=== PATIENT | male | born 1990 | race Caucasian/White ===

== ENCOUNTER 2021-07-26 17:15 | Emergency (ER) | payer BC, SELFPAY ==
[2021-07-26 17:21] VITALS: BP 144/77; PULSE 85; TEMP 37.2; O2SAT 96
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
[2021-07-26 18:00] LABS: Abs Immature Grans 0.02 10^3/uL (0.0-0.06); Absolute Basophil Count 0.04 10^3/uL (0.0-0.2); Absolute Eosinophil Count 0.04 10^3/uL (0.0-0.7); Absolute Lymphocyte Count 1.78 10^3/uL (1.2-3.4); Absolute Monocyte Count 0.83 10^3/uL (0.1-0.8); Absolute Neutrophil Count 9.34 10^3/uL (1.2-6.7); Basophils % 0.3; Eosinophils % 0.3; HCT 44.1 % (40.0-50.0); HGB 14.1 g/dL (13.5-17.5); Immature Grans % 0.2; Lymphocytes % 14.8; MCH 26.5 pg (27.0-33.0); MCV 82.9 fL (80-95); MPV 11.1 fL (8.0-11.0); Monocytes % 6.9; Neutrophils % 77.5; Nucleated RBC 0 %; Platelet Count 239 10^3/uL (130-400); RBC 5.32 10^6/uL (4.36-5.78); RDW 12.8 % (11.8-14.1); RDW-SD 38.8 fL; WBC 12.05 10^3/uL (4.4-10.8)
[2021-07-26 18:01] LABS: Bilirubin Negative (Negative); Blood Negative (Negative); Clarity Clear (Clear); Glucose Negative (Negative); Ketones Negative (Negative); Leukocyte Esterase Negative (Negative); Nitrite Negative (Negative); Specific Gravity 1.025 (1.005-1.025); Urobilinogen 0.2 EU/dL (Up TO 0.2)
[2021-07-26 18:14] LABS: ALT 39 U/L (16-63); AST 36 U/L (15-37); Albumin 4.7 g/dL (3.4-5.0); Alkaline Phosphatase 75 U/L (46-116); Anion Gap 9.2 mmol/L (3-11); BUN 19 mg/dL (7-18); Bilirubin, Total 0.8 mg/dL (0.2-1.0); CO2 28.8 mmol/L (21.0-32.0); CREATININE 1.1 mg/dL (0.70-1.30); Chloride 103 mmol/L (98-107); Glucose 101 mg/dL (74-106); Lipase 499 U/L (73-393); Magnesium 1.8 mg/dL (1.8-2.4); Potassium 3.8 mmol/L (3.5-5.1); Sodium 141 mmol/L (136-145); Total Protein 7.9 g/dL (6.4-8.2)
[2021-07-26 18:36] VITALS: BP 142/85; PULSE 66; RESP 16; TEMP 37.2; O2SAT 100
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
[2021-07-26] MEDS: Normal Saline 1,000 ML 1000 ML IV (18:37)
[2021-07-26] MEDS: Omnipaque 350 MG/ML 100 ML BTL IJ (18:38)
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
[2021-07-26] MEDS: Ondansetron 4 MG/2 ML VIAL IVP (18:54)
[2021-07-26] MEDS: ACETAMINOPHEN 1,000 MG/100 ML BTL 400 MG IVPB (18:54)
[2021-07-26] MEDS: Cyclobenzaprine 10 MG TAB, 3 TABS/BTL PO (19:37)
[2021-07-26] MEDS: Cyclobenzaprine 10 MG TAB PO (19:37)
[2021-07-26 19:56] VITALS: BP 142/85; PULSE 66; RESP 16; TEMP 37.2; O2SAT 100
== END 2021-07-26 20:01 | disposition home or self-care (01) ==
PROVIDERS: Emergency Provider Registered Nurse Emergency; PCP Nurse Practitioner Family
DX: S62.637A Displaced fracture of distal phalanx of left little finger, initial encounter for closed fracture (principal); R07.89 Other chest pain; R10.9 Unspecified abdominal pain; M54.2 Cervicalgia; R51.9 Headache, unspecified; M54.6 Pain in thoracic spine; V86.56XA Driver of dirt bike or motor/cross bike injured in nontraffic accident, initial encounter
CPT/HCPCS: 36415; 74177; 80053; 83690; 96361; 96374; 96375; 99285; 70450; 71260; 72125; 73130; 81003; 83735; 85025; 99284; J0131; J2405; J3490

== ENCOUNTER 2021-09-12 07:46 | Emergency (ER) | payer BC, SELFPAY ==
[2021-09-12 07:50] VITALS: BP 140/89; PULSE 62; RESP 18; TEMP 36.8; O2SAT 99
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
[2021-09-12] MEDS: Cyclobenzaprine 10 MG TAB PO (08:20)
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
--- NOTE | 2021-09-12 09:51 | NUR.NOTE ---
Nursing Note: [facility] called stating they did not have prescriptions for this patient. I spoke with patient and he asked to have them sent electronically to [facility]. Karon Monroe did send the prescriptions and the pharmacy was notified. Elina Campo
== END 2021-09-12 09:08 | disposition home or self-care (01) ==
PROVIDERS: Emergency Provider Physician Assistant; PCP Nurse Practitioner Family
DX: M54.6 Pain in thoracic spine (principal); R07.89 Other chest pain
CPT/HCPCS: 99283; 71046

== ENCOUNTER 2021-09-16 18:57 | Outpatient (CLI) | payer BC, SELFPAY ==
--- NOTE | 2021-09-16 13:57 | DI.RAD_ITS ---
Exam(s) XR RIBS ONLY RT EXAM: XR RIBS ONLY RT CLINICAL HISTORY: CHEST WALL PAIN R07.89 TECHNIQUE: COMPARISON: CR,XR XR CHEST 2V PA LATERAL from 09/12/2021 FINDINGS: Five views of the ribs were obtained. No bony or soft tissue abnormality seen. Visualized lungs marissa ear clear. IMPRESSION: RADIATION DOSE DELIVERED: Total DLP
== END 2021-09-16 19:17 ==
LOC: DI 18:59
PROVIDERS: PCP Nurse Practitioner Family; Visit Provider Family Medicine
DX: R07.89 Other chest pain
CPT/HCPCS: 71100

== ENCOUNTER 2024-02-20 07:02 | Emergency (ER) | payer BC, SELFPAY ==
--- NOTE | 2024-02-20 07:00 | RT.EKG_ITS ---
APPROVED REPORT Exam: Resting ECG Reason for Exam: chest pain Patient Location: E HR:62 bpm ECG Measurements Heart Rate 62 AXIS MN 156 P 51 QRSd 86 QRS 63 QT 371 T 51 QTc 377 Conclusion Sinus rhythm...normal P axis, V-rate 60- 99 Consider anterolateral infarct...Q >30mS, I aVL V3-V6,I,aVL Physician: no stemi
[2024-02-20 07:05] VITALS: BP 129/75; PULSE 58; RESP 20; TEMP 36.5; O2SAT 100
[2024-02-20 07:31] LABS: Abs Immature Grans 0.01 10^3/uL (0.0-0.06); Absolute Basophil Count 0.01 10^3/uL (0.0-0.2); Absolute Eosinophil Count 0.08 10^3/uL (0.0-0.7); Absolute Lymphocyte Count 1.37 10^3/uL (1.2-3.4); Absolute Monocyte Count 0.58 10^3/uL (0.1-0.8); Absolute Neutrophil Count 4.03 10^3/uL (1.2-6.7); Basophils % 0.2 %; Eosinophils % 1.3 %; HCT 42.2 % (40.0-50.0); HGB 13.9 g/dL (13.5-17.5); Immature Grans % 0.2 %; Lymphocytes % 22.5 %; MCH 27.1 pg (27.0-33.0); MCHC 32.9 % (32.0-36.0); MCV 82 fL (80-95); MPV 10.2 fL (8.0-11.0); Monocytes % 9.5 %; Neutrophils % 66.3 %; Platelet Count 194 10^3/uL (130-400); RBC 5.13 10^6/uL (4.36-5.78); RDW 12.5 % (11.8-14.1); RDW-SD 38.1 fL; WBC 6.08 10^3/uL (4.4-10.8)
[2024-02-20] MEDS: Acetaminophen 500 MG TAB 1000 MG PO (07:40)
[2024-02-20] MEDS: Cyclobenzaprine 10 MG TAB PO (07:40)
[2024-02-20] MEDS: Lidocaine 5% Patch 1 PATCH TP (07:40)
--- NOTE | 2024-02-20 07:41 | DI.RAD_ITS ---
Exam(s) XR PORTABLE CHEST AP EXAM: XR PORTABLE CHEST AP CLINICAL HISTORY: chest and back pain TECHNIQUE: 2D digital imaging was performed of the chest. Two images were obtained. AP views were obtained. COMPARISON: CR,XR XR CHEST 2V PA LATERAL from 09/12/2021 CR XR RIBS ONLY RT from 09/16/2021 FINDINGS: MEDIASTINUM: Normal. HEART: Normal. PULMONARY VASCULATURE: Normal. LUNGS: Clear. PLEURAL SPACE: No pleural effusion or pneumothorax. BONE:Within normal limits for the patient's age. OTHER FINDINGS:Normal. IMPRESSION: No acute pulmonary findings. DATA REPOSITORY: RADIATION DOSE DELIVERED:
[2024-02-20 07:45] LABS: PTT Activated 26.3 sec (23.6-32.8); Prothrombin Time 10.2 sec (9.1-11.1)
[2024-02-20 07:48] VITALS: RESP 18
[2024-02-20 07:49] LABS: ALT 25 U/L (16-63); AST 23 U/L (15-37); Albumin 4.1 g/dL (3.4-5.0); Alkaline Phosphatase 61 U/L (46-116); Anion Gap 5.2 mmol/L (3-11); BUN 19 mg/dL (7-18); Bilirubin, Total 0.79 mg/dL (0.2-1.0); CO2 29.8 mmol/L (21.0-32.0); CREATININE 1.2 mg/dL (0.70-1.30); Calcium 9.1 mg/dL (8.5-10.1); Chloride 108 mmol/L (98-107); Estimated GFR 81.38 (mL/min/1.73m2); Glucose 77 mg/dL (74-106); Lipase 208 U/L (16-77); Potassium 4.2 mmol/L (3.5-5.1); Sodium 143 mmol/L (136-145); Total Protein 7.2 g/dL (6.4-8.2)
--- NOTE | 2024-02-20 07:49 | DI.VRAD_ITS ---
PROCEDURE INFORMATION: Exam: XR Chest Exam date and time: 02/20/2024 7:36 AM Age: 33 years old Clinical indication: Right-sided; Patient HX: Chest pain and back pain. TECHNIQUE: Imaging protocol: Radiologic exam of the chest. Views: 1 view. COMPARISON: CR XR CHEST 2V PA LATERAL 09/12/2021 8:23 AM FINDINGS: Lungs: No focal consolidation seen. Pleural spaces: No large pleural effusion seen. Heart/Mediastinum: No cardiomegaly. Bones/joints: No acute abnormality. IMPRESSION: No acute findings to explain reported symptoms. Dictated and Authenticated by: Brenda Enriquez MD. Ordering:KAYELIGH Loco MD
[2024-02-20 08:02] LABS: Troponin I < 4 ng/L (<or=76)
[2024-02-20 08:03] LABS: D-Dimer 105 ng/mlFEU (<500)
--- NOTE | 2024-02-20 08:46 | ED.GENADUL_ITS ---
Discharge Plan Disposition Patient Disposition: Home Condition: Good Discharge Details Clinical Impression: Strain of right levator scapulae muscle, Muscle spasm, Pancreatitis Primary Care Provider: Eneida Templeton ED Provider: Claudy Frost Home Meds and New Rx's Prescriptions: New cyclobenzaprine 10 mg tablet 10 mg PO TID Qty: 14 0RF lidocaine [Lidoderm] 5 % adhesive patch,medicated 1 patch Topical Q24H Qty: 15 0RF No Action acetaminophen 500 mg Tablet 500 mg PO PRN PRN ibuprofen 400 mg Tablet 400 mg PO PRN PRN Discharge Instructions Instructions: Acute pancreatitis, Muscle Spasm ED Additional Instructions: At this time your workup is returned very reassuring. No evidence of complication for your lungs, your heart workup shows no abnormality. No evidence of blood clots. You do have evidence of mild pancreatitis, which I do believe is causing a viscerosomatic reflex and the spasm in your right levator scapulae muscle. Please continue to massage the area throughout the day, use a heating pad to help. Please use the muscle relaxant cyclobenzaprine as prescribed. Please use the Lidoderm numbing patch as prescribed. Please perform daily stretching exercises as we discussed together. In regards to the pancreatitis please continue to avoid any alcohol. Avoid fatty greasy or highly sugar/carb-based meals. Please stick with a mild bland liquid diet for the next week. If you notice any worsening of your symptoms, or any new symptoms such as vomiting, diarrhea, fever, chills, shortness of breath, chest pain, numbness, weakness, or fainting , please return immediately to the emergency department for reevaluation. Please follow up with your primary care provider as soon as possible for reassessment and reevaluation. As always, it was a pleasure participating in your medical care today. Stand Alone Forms: Work Release Referrals: Eneida Templeton [Primary Care Provider] - Discharge Data Discharge Date/Time-TO BE ENTERED AT DEPARTURE: 02/20/24 09:34 HPI General Date/Time Provider Initiated Documentation: 02/20/24 07:23 . HPI Narrative: 33-year-old male with no significant past medical history aside for regular smoked marijuana use, presents today for evaluation of right scapular muscle spasm. Patient states that he and his significant other have 8 Hebrew bulldogs, and they often carry them around to lift them up and down. Yesterday after lifting when he felt something feel little atypical in his right back/shoulder. Throughout the evening it began to notably spasm, continued throughout the night and then continued throughout today. He did take Tylenol and Motrin and he states that this significantly improved the pain but did not resolve it. He denies any chest pain but does admit to mild shortness of breath. He denies any vomiting or diarrhea. He denies any fever or chills. He denies any trauma. He denies any recent long trips, surgeries or procedures. He denies any other complaints at this time. He denies any significant or regular alcohol intake. Related Data Home Medications ?Medication ?Instructions ?Recorded ?Confirmed acetaminophen 500 mg tablet 500 mg PO PRN PRN 09/12/21 02/20/24 ibuprofen 400 mg tablet 400 mg PO PRN PRN 09/12/21 02/20/24 cyclobenzaprine 10 mg tablet 10 mg PO TID #14 tabs 02/20/24 lidocaine 5 % topical patch 1 patch topical Q24H #15 ea 02/20/24 (Lidoderm) Previous Rx's ?Medication ?Instructions ?Recorded cyclobenzaprine 10 mg tablet 10 mg PO TID #14 tabs 02/20/24 lidocaine 5 % topical patch 1 patch topical Q24H #15 ea 02/20/24 (Lidoderm) Allergies Allergy/AdvReac Type Severity Reaction Status Date / Time albuterol Allergy Intermediate serum Unverified 02/20/24 07:11 sickness amoxicillin (Amoxicillin) Allergy Intermediate serum Unverified 02/20/24 07:11 sickness General Stated Complaint: Chest Pain WILLIAM: 3 Review of Systems All systems reviewed & are unremarkable except as noted in HPI and below Exam Narrative Exam Narrative: 1.Const: Well-nourished, Well-developed, appearing stated age 2.Eyes: PERRL, no conjunctival injection, and symmetrical lids. 3.ENT: Atraumatic external nose and ears. Moist MM. Neck: Symmetric, trachea midline, No thyromegaly. 4.CVS: +S1/S2, Peripheral pulses 2+ and equal in all extremities. Brisk capillary refill in all extremities. 5.RESP: Unlabored respiratory effort. Clear to auscultation bilaterally. No wheezes rales or rhonchi 6.GI: Soft, Nontender/Nondistended, No hepatosplenomegaly. No guarding or rebound. 7.MSK: Normocephalic/Atraumatic, Extremities w/o deformity or ttp No cyanosis or clubbing, Normal movement of all extremities. Notable spasm of the right levator scapulae muscles. No redness or warmth. Normal strength and movement of the right shoulder otherwise. No midline's thoracic spine tenderness. 8.Skin: Warm, Dry. No rashes or lesions. 9.Neuro: color television console monitor II-XII grossly intact. Sensation grossly intact, no focal neurologic deficits. 10.Psych: (AAO) x3. Appropriate mood and affect Course Vital Signs Vital signs: Vital Signs Temperature 36.5 C 02/20/24 07:05 Pulse 58 L 02/20/24 07:05 Respiratory Rate 20 02/20/24 07:05 Blood Pressure 129/75 02/20/24 07:05 Pulse Oximetry 100 02/20/24 07:05 Temperature 36.5 C 02/20/24 07:05 Temperature Source Oral 02/20/24 07:05 Pulse 58 L 02/20/24 07:05 Respiratory Rate 18 02/20/24 07:48 Respiratory Effort Normal 02/20/24 07:48 Respiratory Pattern Normal 02/20/24 07:48 Blood Pressure 129/75 02/20/24 07:05 Blood Pressure Position Sitting 02/20/24 07:05 Pulse Oximetry 100 02/20/24 07:05 Oxygen Delivery Method Room Air 02/20/24 07:05 Oxygen Flow Rate 0 02/20/24 07:05 Pain Level 5 02/20/24 07:40 Lab/Test Results Lab/Test Results: Laboratory Tests Range/Units 02/20/24 07:22 WBC (4.4-10.8) 10^3/uL 6.08 RBC (4.36-5.78) 10^6/uL 5.13 Hgb (13.5-17.5) g/dL 13.9 Hct (40.0-50.0) % 42.2 MCV (80-95) fL 82 MCH (27.0-33.0) pg 27.1 MCHC (32.0-36.0) % 32.9 RDW (11.8-14.1) % 12.5 Plt Count (130-400) 10^3/uL 194 MPV (8.0-11.0) fL 10.2 Immature Gran % % 0.2 Neutrophils % % 66.3 Lymphocytes % % 22.5 Monocytes % % 9.5 Eosinophils % % 1.3 Basophils % % 0.2 Nucleated RBC % (0.0-0.3) % 0.0 Absolute Neutrophils (1.2-6.7) 10^3/uL 4.03 Absolute Lymphocytes (1.2-3.4) 10^3/uL 1.37 Absolute Monocytes (0.1-0.8) 10^3/uL 0.58 Absolute Eosinophils (0.0-0.7) 10^3/uL 0.08 Absolute Basophils (0.0-0.2) 10^3/uL 0.01 PT (9.1-11.1) sec 10.2 INR (0.9-1.1) 1.0 APTT (23.6-32.8) sec 26.3 D-Dimer (<500) ng/mlFEU 105 Sodium (136-145) mmol/L 143 Potassium (3.5-5.1) mmol/L 4.2 Chloride (98-107) mmol/L 108 H Carbon Dioxide (21.0-32.0) mmol/L 29.8 Anion Gap (3-11) mmol/L 5.2 BUN (7-18) mg/dL 19 H Creatinine (0.70-1.30) mg/dL 1.2 Est GFR (CKD-EPI 2020) (mL/min/1.73m2) 81.38 Glucose (74-106) mg/dL 77 Calcium (8.5-10.1) mg/dL 9.1 Total Bilirubin (0.2-1.0) mg/dL 0.79 AST (15-37) U/L 23 ALT (16-63) U/L 25 Alkaline Phosphatase (46-116) U/L 61 Troponin I (<or=76) ng/L < 4 Total Protein (6.4-8.2) g/dL 7.2 Albumin (3.4-5.0) g/dL 4.1 Lipase (16-77) U/L 208 H Medical Decision Making 33-year-old male with no significant past medical history aside for regular smoked marijuana use, presents today for evaluation of right scapular muscle spasm. Patient states that he and his significant other have 8 Hebrew bulldogs, and they often carry them around to lift them up and down. Yesterday after lifting when he felt something feel little atypical in his right back/shoulder. Throughout the evening it began to notably spasm, continued throughout the night and then continued throughout today. He did take Tylenol and Motrin and he states that this significantly improved the pain but did not resolve it. He denies any chest pain but does admit to mild shortness of breath. He denies any vomiting or diarrhea. He denies any fever or chills. He denies any trauma. He denies any recent long trips, surgeries or procedures. He denies any other complaints at this time. He denies any significant or reg ular alcohol intake. Exam demonstrates well-appearing male, back demonstrates no tenderness over bony processes or the scapula, however the patient has a notable spasm of his right levator scapula muscle. No evidence of rupture otherwise. No abdominal tenderness or other chest wall tenderness. Vital signs are stable. Suspect musculoskeletal component to the patient's symptoms/pain, however differential does include potential viscerosomatic reflex. We will get lipase level, check bilirubin and hepatic numbers, we will give a Lidoderm patch, Flexeril to help with muscle relaxation, get a chest x-ray to rule out acute chest process, get a D-dimer to rule out PE, evaluate for cardiac etiology, monitor closely and reassess. 10 AM Patient's laboratory workup has returned, no white count bandemia or left shift, D-dimer normal. Chest x-ray negative for acute process. Electrolytes normal. Troponin initial and repeat normal. Lipase is elevated at 208, however the patient has no epigastric pain, denies any nausea or vomiting. Bilirubin transaminases are in all normal, and with no epigastric tenderness, I do not see an indication for emergent CT imaging at this time. He does not show any clinical evidence of choledocholithiasis, epigastric pain or tenderness to suggest pancreatic mass, weight loss or fever to suggest cancer, or other concerning etiology. Will recommend dietary changes for the next 1 to 2 weeks with a liquid diet, avoiding fatty greasy and overly sugary foods. In regards to the muscle spasm we will give Flexeril muscle relaxant, continue recommendations for Lidoderm patch, heating pad, and massage. Patient otherwise stable for discharge at this point. Recommend close follow-up with PCP. Discussed red flags which to return. I have extensively reviewed the treatment plan and discharge instructions with the patient. I have addressed all patient concerns at this time. The patient was made aware of what symptoms to monitor for that would warrant a return to the emergency department. Discussed the plan with the patient, they demonstrate verbal understanding and agreement with our assessment and plan at this time. The documentation in this chart was dictated using [employer] dictation software. Please excuse any dictation errors. FINDINGS: MEDIASTINUM: Normal. HEART: Normal. PULMONARY VASCULATURE: Normal. LUNGS: Clear. PLEURAL SPACE: No pleural effusion or pneumothorax. BONE:Within normal limits for the patient's age. OTHER FINDINGS:Normal. IMPRESSION: No acute pulmonary findings. Quality:SDOH Health Related Social Needs: No Data to Display PFSH All Active Problems Pancreatitis (Chronic) Muscle spasm (Acute) Strain of right levator scapulae muscle (Acute) Social History Smoking/Tobacco Use Status: Former Tobacco Use Smoking risk assessment performed?: Yes Alcohol Intake: current Alcohol Intake frequency: holidays/special occasions only Drug use: Daily Substance use type: marijuana Do you feel safe at home: Yes Do you feel safe in your relationship?: Yes PAWSS Have you Been Recently Intoxicated or Drunk Within the Last 30 days?: No Have you Ever Experienced Previous Episodes of Alcohol Withdrawal?: No Have you ever Experienced Withdrawal Seizures?: No Have you ever Experienced Delirium Tremens(DT)s?: No Have you ever undergone Alcohol Rehabilitation Treatment (i.e, inpt ot outpatient treatment programs)?: No Have you ever Experienced Blackouts?: No Have you ever Combined Alcohol with other Downers within the last 90 days?: No Have you ever Combined Alcohol with any other Substance of Abuse during the last 90 days?: No Result: 0
== END 2024-02-20 09:34 | disposition home or self-care (01) ==
PROVIDERS: Emergency Provider Student in an Organized Health Care Education/Training Program; PCP Nurse Practitioner Family
DX: S29.012A Strain of muscle and tendon of back wall of thorax, initial encounter (principal); K85.90 Acute pancreatitis without necrosis or infection, unspecified; M62.838 Other muscle spasm; X58.XXXA Exposure to other specified factors, initial encounter
CPT/HCPCS: 80053; 83690; 93005; 99285; 71045; 84484; 85025; 85379; 85610; 85730; 93010; 99284

== ENCOUNTER 2024-03-02 16:27 | Outpatient (REF) | payer BC, SELFPAY ==
[2024-03-02 20:58] LABS: Bilirubin Negative (Negative); Blood Negative (Negative); Clarity Sl Cloudy (Clear); Glucose Negative (Negative); Ketones Negative (Negative); Leukocyte Esterase Negative (Negative); Nitrite Negative (Negative); Specific Gravity >= 1.030 (1.005-1.025); Urobilinogen 0.2 mg/dL (Up to 0.2)
[2024-03-02 21:15] LABS: ALT 35 U/L (16-63); AST 26 U/L (15-37); Albumin 4.5 g/dL (3.4-5.0); Alkaline Phosphatase 63 U/L (46-116); Amylase 99 U/L (25-115); Anion Gap 8.6 mmol/L (3-11); BUN 19 mg/dL (7-18); Bilirubin, Total 0.68 mg/dL (0.2-1.0); CO2 29.4 mmol/L (21.0-32.0); CREATININE 1.1 mg/dL (0.70-1.30); Chloride 105 mmol/L (98-107); Estimated GFR 90.34 (mL/min/1.73m2); Glucose 135 mg/dL (74-106); Lipase 37 U/L (16-77); Potassium 3.9 mmol/L (3.5-5.1); Sodium 143 mmol/L (136-145); Total Protein 7.3 g/dL (6.4-8.2)
[2024-03-02 21:25] LABS: Calcium 9.4 mg/dL (8.5-10.1)
== END 2024-03-02 16:28 | disposition home or self-care (01) ==
LOC: NCHCN 16:27
PROVIDERS: PCP Nurse Practitioner Family; Visit Provider Nurse Practitioner Family
DX: K85.90 Acute pancreatitis without necrosis or infection, unspecified (principal); M25.511 Pain in right shoulder
CPT/HCPCS: 80053; 83690; 81003; 82150